=== PATIENT | male | born 1980 | race Caucasian/White ===

== ENCOUNTER → 2016-10-17 | Outpatient (CLI) | payer OTHER ==
--- NOTE | ~2016-10-17 | CR63 ---
[facility] A Service of [facility] & [facility] RADIOLOGY TEXT RESULTS PATIENT: PHYLLIS COTTO LOCATION: [facility] : 82 UNIT #: [id number] AGE: [address]: Celio Roberts MD SEX: M ORDER DR: [id number] [facility] [address] [place], [place] [address] [id number] O MR#: [id number] Acc #: [id number] NAME: PHYLLIS COTTO : 1980 SEX: M STUDY DATE/TIME: 10/17/2016 14:24 UNIT: [facility] ROOM: STUDY DESCRIPTION: CR Chest 2 View Attending Physician: Celio Roberts M.D. Referring Physician: Celio Roberts M.D. Ordering Physician: Celio Roberts M.D. Primary Care Physician: Mary Abad M.D. MEDICAL IMAGING REPORT This report is preliminary unless electronic signature is present EXAM 2 view chest. INDICATIONS Shortness of air for the past month. PROCEDURE Frontal and lateral views of the chest. COMPARISON None. FINDINGS Heart size within normal limits. No dense consolidation. No pleural fluid or pneumothorax. IMPRESSION No active process. Dictated by... Amish Jasmine M.D. THIS IS AN ELECTRONICALLY VERIFIED REPORT Amish Jasmine M.D. at 10/20/2016 9:45 AM KISHA/farhan TD: 10/17/2016 17:21 JOB #: [id number] MEDICAL IMAGING REPORT Page 1 of 1 COPY
== END | disposition home or self-care (01) ==
LOC: CRAD 14:07
DX: R07.9 Chest pain, unspecified (principal); R06.02 Shortness of breath
CPT/HCPCS: 71020